=== PATIENT | female | born 1960 | race Two or more races ===

== ENCOUNTER 2024-05-16 18:22 | Emergency (ER) | payer MEDICAID, SELFPAY ==
[2024-05-16 19:15] VITALS: BP 190/112; BP 197/93; PULSE 83; RESP 18; TEMP 36.8; O2SAT 97
--- NOTE | 2024-05-16 19:35 | XR_ITS ---
Examination: PA chest single view Technique: Upright PA chest single view Exam date and time: May 16, 2024 1952 hrs. Comparison August 31, 1999 424 Indications: Onset chest pressure today. Findings: Mild prominence left ventricle No pneumonia or pulmonary edema Stable granuloma left upper lobe compared with December 27, 2006 Old right-sided rib fractures Impression: No active disease
--- NOTE | 2024-05-16 19:36 | EDRME_ITS ---
Rapid Medical Screening Exam [facility] Arrival date/time: 05/16/24 18:22 63F with history of TIA, HTN (has been taking meds), and anxiety presents to ED with 1 day of elevated BP, N/V, and some chest and posterior head pressure. Chief Complaint: Recheck/Abnormal Lab/Rx Vital signs: Vital Signs Temperature 98.3 F 05/16/24 19:15 Pulse Rate 83 05/16/24 19:15 Respiratory Rate 18 05/16/24 19:15 Blood Pressure 197/93 H 05/16/24 19:15 Pulse Oximetry (%) 97 05/16/24 19:15 Oxygen Delivery Method Room Air 05/16/24 19:15
--- NOTE | 2024-05-16 19:36 | XR_ITS ---
Examination: CT brain head without contrast. 2-D sagittal coronal reconstructions Date and time of exam:May 16, 2024 1939 hrs. Indications: Headache with elevated blood pressure today CTDI: vol (mGy):55.3 DLP: (mGycm):1075 Technique: Multiple CT axial sections of the brain have been obtained, 5 mm slice thickness. Contrast has not been administered. 2-D sagittal, coronal reconstructions have been obtained Low dose protocols were performed. One or more of the following dose reduction techniques were used; automated exposure control, adjustment of the mA and/or KV according to patient size, use of iterative reconstruction technique. Findings: No significant ventricular enlargement. Intra-axial or extra-axial hemorrhage density is not seen. No mass effect or midline shift Basal cisterns are not remarkable. Fourth ventricle is midline. Cranial vault intact. Impression: Negative for acute hemorrhage, mass effect or midline shift
[2024-05-16 19:56] LABS: Basophils # (Auto) 0.1 Thou/mm3 (0.0-0.2); Basophils % (Auto) 1 % (0-2.5); Eosinophils # (Auto) 0.3 Thou/mm3 (0.0-0.5); Eosinophils % (Auto) 3 % (0-10); Hematocrit 43.2 % (36.0-46.0); Hemoglobin 14.1 g/dL (12.0-16.0); Immature Granulocytes % (Auto) 1 % (0-0); Immature Granulocytes Auto 0.06 Thou/mm3 (0.00-0.00); Lymphocytes # (Auto) 3.3 Thou/mm3 (1.0-4.8); Lymphocytes % (Auto) 31 % (10-50); Mean Corpuscular HGB Conc 32.6 g/dl (31.0-37.0); Mean Corpuscular Hemoglobin 29.3 pg (25.0-35.0); Mean Corpuscular Volume 90 fL (80-100); Monocytes # (Auto) 0.8 Thou/mm3 (0.0-0.8); Monocytes % (Auto) 8 % (0-12); Neutrophils % (Auto) 57 % (37-80); Nucleated Red Blood Cell % 0 /100 WBC (0); Platelet Count 259 Thou/mm3 (140-440); RDW Standard Deviation 38.6 fL (36.4-46.3); Red Blood Count 4.81 Miln/mm3 (4.00-5.20); White Blood Count 10.5 Thou/mm3 (3.6-11.0)
[2024-05-16 20:14] LABS: Alanine Aminotransferase 24 U/L (10-49); Albumin, Serum 4.7 gm/dL (3.4-4.8); Albumin/Globulin Ratio 1.6 (1.2-2.2); Alkaline Phosphatase 121 U/L (46-116); Anion Gap 3 (7-16); Aspartate Amino Transferase 24 U/L (0-34); BUN/Creatinine Ratio 19 Ratio (12-20); Bilirubin,Total 0.5 mg/dL (0.3-1.2); Blood Urea Nitrogen 15 mg/dL (9-23); Calcium 9.5 mg/dL (8.3-10.6); Calcium (Corrected) 9.5 mg/dL (8.5-10.1); Chloride 106 mMol/L (98-107); Creatinine (Component) 0.8 mg/dL (0.6-1.3); Glucose 122 mg/dL (74-106); Osmolality,Calculated 273 (275-295); Potassium 4.4 mMol/L (3.4-5.1); Sodium 136 mMol/L (136-145); Total Protein 7.7 gm/dL (5.7-8.2); Troponin I < 0.020 ng/mL (0.0-0.045); eGFR > 60 See Note
[2024-05-16 22:49] VITALS: BP 131/101; PULSE 77; RESP 18; TEMP 36.7; O2SAT 99; BMI 30.8
[2024-05-17 01:00] VITALS: BP 224/118; PULSE 72; RESP 18; O2SAT 98
--- NOTE | 2024-05-17 01:07 | EDNOTE_ITS ---
ED Recheck Abnl Lab Rx-RME/HPI General Chief Complaint: Recheck/Abnormal Lab/Rx Stated Complaint: HIGH BP, NAUSEA Arrival date/time: 05/16/24 18:22 Limitations: no limitations RME / HPI RME / HPI narrative: 05/16/24 18:22 63F with history of TIA, HTN (has been taking meds), and anxiety presents to ED with 1 day of elevated BP, N/V, and some chest and posterior head pressure. ---- Dr. Galvez's Main ED Evaluation: 63yo female with pmhx HTN, anxiety presents to the ED for a chief complaint of elevated blood pressure. Patient states her blood pressure went up after she began to experience anxiety, reporting she felt dizzy and had pressure to the back of her head. She states she was concerned, so she came in for evaluation. She denies any chest pain, shortness of breath, nausea, vomiting or any other associated symptoms. No known allergies. Related Data Home Medications ?Medication ?Instructions ?Recorded ?Confirmed losartan 100 mg tablet 100 mg PO QDAY 03/03/23 03/03/23 Previous Rx's ?Medication ?Instructions ?Recorded latanoprost 0.005 % eye drops 1 drp ophthalmic (eye) QPM #2.5 mL 06/21/23 acetazolamide 250 mg tablet 250 mg PO QID #20 tabs 06/23/23 Allergies Allergy/AdvReac Type Severity Reaction Status Date / Time No Known Allergies Allergy Verified 07/22/23 14:04 Review of Systems Review of Systems Systems Reviewed: All systems reviewed, normal except as documented Past Medical History Past Medical History NEUROLOGIC: Negative Neurological Disorders CARDIAC: Positive Hypertension; Negative Cardiac Disorders or Congestive Heart Failure RESPIRATORY: Negative Chronic Obstructive Pulmonary Disease (COPD) or Asthma GASTROINTESTINAL: Positive Gastrointestinal Disorders and Diverticulitis; Negative Hepatitis GENITOURINARY: Positive Genitourinary Disorders; Negative Renal Disease REPRODUCTIVE: Negative Endometriosis, Pelvic Inflammatory Disease, Previous Pregnancies or Uterine Prolapse MUSCULOSKELETAL: Negative Musculoskeletal Disorders ENDOCRINE: Negative Endocrine Disorders, Diabetes Mellitus Type 1 or Diabetes Mellitus Type 2 HEMATOLOGIC: Negative Blood Disorders or Sickle Cell Disease PSYCHO/SOCIAL: Positive Depression and Anxiety OTHER HISTORY: Negative Hospitalization, Autoimmune Disease, Down Syndrome, Developmental Delay, Shingles, Falls, Blood Transfusions, Anesthesia Reactions, Organ Transplant, Chemotherapy, Radiation Therapy, Hyperbaric Therapy, MRSA, VRSA, Vancomycin-Resistant Enterococci, Human Immunodeficiency Virus (HIV), Chicken Pox, Measles, Mumps, Rubella ([place] Islander Measles), Pertussis, Clostridium Difficile or Cancer Family History FAMILY HISTORY: Positive Family Psychiatric Problems, Family Gastrointestinal Problems, Family Cancer and Family Surgery; Negative Family Respiratory Disorders, Family Cardiac Disorders or Family Anesthesia Reaction Surgical History SURGICAL: Positive Nose Surgery and Section; Negative Cardiac Surgery, Endocrine Surgery, Abdominal Surgery, Joint Replacement, Neurologic Surgery, Brain Shunt, Mastectomy, Lumpectomy, Hysterectomy, Tubal Ligation or Organ Transplant Social History SMOKING STATUS: Never smoker ED Exam General Limitations: Present no limitations General appearance: Present alert and in no apparent distress Head Head exam: Present atraumatic Eye Eye exam: Present normal appearance, PERRL and EOMI ENT ENT exam: Present normal exam, normal oropharynx and mucous membranes moist Neck Neck exam: Present normal inspection, full ROM and trachea midline Chest Chest inspection: Present normal inspection and symmetric chest wall rise Respiratory Respiratory exam: Present normal lung sounds bilaterally Cardiovascular Cardiovascular exam: Present regular rate, normal rhythm and normal heart sounds Abdominal Exam Abdominal exam: Present soft and normal bowel sounds Extremities Exam Extremities exam: Present normal inspection and full ROM; Absent pedal edema Back Exam Back exam: Present normal inspection and full ROM Neurological Exam Neurological exam: Present alert, oriented X3 and CN II-XII intact Psychiatric Psychiatric exam: Present normal affect and normal mood Skin Skin exam: Present warm, dry, intact and normal color Course Course Course Narrative: CXR is ordered for determining the etiology of elevated BP. Quality Measures none Orders Category Date Time Status EKG (ED ONLY) *Do not use* NOW Care 05/16/24 18:[address] head/brain wo con Stat Exams 05/16/24 19:36 Completed EKG (ED Only) Stat Exams 05/16/24 18:59 Ordered XR chest 1V portable Stat Exams 05/16/24 19:35 Completed CBC Stat Lab 05/16/24 19:42 Completed Comprehensive Metabolic Panel Stat Lab 05/16/24 19:42 Completed Troponin I Stat Lab 05/16/24 19:42 Completed LORazepam [Ativan] Med 05/17/24 01:02 Discontinued 1 mg PO X1 ONE Vital Signs Vital signs: Vital Signs Temperature 98.3 F 05/16/24 19:15 Pulse Rate 83 05/16/24 19:15 Respiratory Rate 18 05/16/24 19:15 Blood Pressure 197/93 H 05/16/24 19:15 Pulse Oximetry (%) 97 05/16/24 19:15 Oxygen Delivery Method Room Air 05/16/24 19:15 Pulse ox is 97% on room air, which is normal according to my interpretation. Recheck / Abnormal Lab / Rx Patient data External records reviewed:: [facility] previous records (Per chart review, patient was seen here on 08/31/23 for chest pain.) Clinical information provided by:: patient Social determinants that could affect healthcare access:: none Patient has the following chronic illnesses:: HTN How is presenting disease/condition affected by chronic disease/condition?: exacerbated by Evaluation data The following diagnostics were reviewed and interpreted by me:: lab results, radiology exam(s) and EKG tracing(s) Lab and/or radiology exams considered but not ordered:: none Interpretation Summary: CXR shows poor inspiratory effort, no cardiomegaly, left lobe atelectasis, no CHF, according to my interpretation. EKG done at 1923, sinus rhythm, rate of 75, nonspecific ST changes in lead III, QTc: 432, no STEMI, similar to previous EKG done on 07/24/23 Medications / Prescriptions Medications or Prescriptions considered but not ordered:: none Medication administrations:: Medication Administration History Discontinued Medications Lorazepam (Lorazepam 0.5 Mg Tablet) 1 mg PO X1 ONE Stop: 05/17/24 01:03 Last Admin: 05/17/24 01:08 Dose: 1 mg Documented By: BERRY see above Consultations Consultation(s) initiated? (list below): No Diagnosis Recheck Differential Diagnosis: other (hypertensive urgency, hypertensive emergency, anxiety, dehydration) Most likely diagnosis given after review of the tests above:: see below Admission Indicated Admission indicated?: not indicated Admission Request Was there a request for admission?: No Disposition Plan Disposition Plan: Discharge Discharge Attestation Discharge Attestation: The patient and all family members were given an opportunity to ask questions and understood the discharge instructions. Discharge instructions specifically effects, indications for sooner follow up or return to the emergency department, and the expected course of current diagnosis. Patient condition: Stable Discharge Plan Plan Patient Disposition: HOME (Self Care) Patient condition on transfer: Stable Prescriptions/Referrals Prescriptions/Med Rec: No Action losartan 100 mg Tablet 100 mg PO QDAY latanoprost 0.005 % drops 1 drp ophthalmic (eye) QPM Qty: 2.5 0RF acetazolamide 250 mg tablet 250 mg PO QID Qty: 20 0RF Rx Instructions: take one tablet by mouth 4 times daily Referrals: No Primary/Family,Physician [Primary Care Provider] - In 1 week Problem List Clinical Impression: Hypertension, Anxiety Patient/Caregiver Discharge Instructions Education Materials: ED Anxiety Reaction, ED Hypertension, Established Additional Instructions: Return to the emergency department for any worsening symptoms, neck concerns. Take all your medications as prescribed Print Language: Swedish Stand Alone Forms: Deb Award Info., Patient Portal Info Letter
[2024-05-17] MEDS: LORazepam 0.5 MG TABLET 1 MG PO (01:08)
[2024-05-17 02:07] VITALS: BP 182/85; PULSE 75; RESP 18; TEMP 36.6; O2SAT 98
[2024-05-17 02:24] VITALS: BP 152/75
== END 2024-05-17 02:32 | disposition home or self-care (01) ==
PROVIDERS: Physician Assistant; Emergency Provider Emergency Medicine
DX: F41.9 Anxiety disorder, unspecified (principal); I10 Essential (primary) hypertension; R51.9 Headache, unspecified; R07.89 Other chest pain; I49.3 Ventricular premature depolarization
CPT/HCPCS: 36415; 70450; 71045; 80053; 84484; 85025; 93005; 99284; A9270

== ENCOUNTER 2024-06-30 23:31 | Emergency (ER) | payer MEDICAID, SELFPAY ==
[2024-06-30 23:32] VITALS: BMI 38.7
--- NOTE | 2024-06-30 23:54 | PD.EDRME ---
Rapid Medical Screening Exam RME Arrival date/time: 06/30/24 23:31 63 year old female present to Ed for anxiety/chest pain. + stressor I have greeted and performed a focused initial assessment of this patient. A comprehensive ED assessment and evaluation of the patient, analysis of all test results, and completion of the medical decision making process will be conducted by additional ED providers. Chief Complaint: Anxiety
[2024-06-30 23:55] VITALS: BP 162/92; PULSE 77; RESP 20; TEMP 36.6; O2SAT 95
[2024-06-30] MEDS: LORazepam 0.5 MG TABLET PO (23:58)
[2024-07-01 00:51] LABS: Basophils # (Auto) 0.1 Thou/mm3 (0.0-0.2); Basophils % (Auto) 1 % (0-2.5); Eosinophils # (Auto) 0.3 Thou/mm3 (0.0-0.5); Eosinophils % (Auto) 3 % (0-10); Hematocrit 41.9 % (36.0-46.0); Hemoglobin 13.9 g/dL (12.0-16.0); Immature Granulocytes % (Auto) 0 % (0-0); Immature Granulocytes Auto 0.05 Thou/mm3 (0.00-0.00); Lymphocytes # (Auto) 2.6 Thou/mm3 (1.0-4.8); Lymphocytes % (Auto) 23 % (10-50); Mean Corpuscular HGB Conc 33.2 g/dl (31.0-37.0); Mean Corpuscular Hemoglobin 29.5 pg (25.0-35.0); Mean Corpuscular Volume 89 fL (80-100); Monocytes # (Auto) 0.8 Thou/mm3 (0.0-0.8); Monocytes % (Auto) 7 % (0-12); Neutrophils # (Auto) 7.5 Thou/mm3 (1.8-7.7); Neutrophils % (Auto) 66 % (37-80); Nucleated Red Blood Cell % 0 /100 WBC (0); Platelet Count 272 Thou/mm3 (140-440); RDW Standard Deviation 38.5 fL (36.4-46.3); Red Blood Count 4.71 Miln/mm3 (4.00-5.20); White Blood Count 11.4 Thou/mm3 (3.6-11.0)
[2024-07-01 01:09] LABS: Alanine Aminotransferase 21 U/L (10-49); Albumin, Serum 4.5 gm/dL (3.4-4.8); Albumin/Globulin Ratio 1.7 (1.2-2.2); Alkaline Phosphatase 112 U/L (46-116); Anion Gap 8 (7-16); Aspartate Amino Transferase 27 U/L (0-34); BUN/Creatinine Ratio 19 Ratio (12-20); Bilirubin,Total 0.5 mg/dL (0.3-1.2); Blood Urea Nitrogen 15 mg/dL (9-23); Calcium 10.1 mg/dL (8.3-10.6); Calcium (Corrected) 10.1 mg/dL (8.5-10.1); Carbon Dioxide 27.1 mMol/L (20.0-31.0); Chloride 105 mMol/L (98-107); Creatinine (Component) 0.8 mg/dL (0.6-1.3); Estimated Creatinine Clearance 78.9 mL/min (>60); Globulin 2.7 gm/dL (2.3-3.5); Glucose 146 mg/dL (74-106); Lipase 34 U/L (12-53); Osmolality,Calculated 283 (275-295); Sodium 140 mMol/L (136-145); Total Protein 7.2 gm/dL (5.7-8.2); Troponin I < 0.020 ng/mL (0.0-0.045); eGFR > 60 See Note
[2024-07-01 04:11] VITALS: BP 178/84; PULSE 74; RESP 15; TEMP 36.8; O2SAT 97
--- NOTE | 2024-07-01 04:14 | PD.EDANX ---
ED Anxiety RME/HPI General Chief Complaint: Anxiety Stated Complaint: CHEST PAIN/ ANXIETY ATTACK Arrival date/time: 06/30/24 23:31 RME / HPI RME / HPI narrative: 06/30/24 23:31 63 year old female present to Ed for anxiety/chest pain. + stressor I have greeted and performed a focused initial assessment of this patient. A comprehensive ED assessment and evaluation of the patient, analysis of all test results, and completion of the medical decision making process will be conducted by additional ED providers. ------ Dr. Miller?s Main ED Evaluation: Related Data Home Medications ?Medication ?Instructions ?Recorded ?Confirmed losartan 100 mg tablet 100 mg PO QDAY 03/03/23 03/03/23 Previous Rx's ?Medication ?Instructions ?Recorded latanoprost 0.005 % eye drops 1 drp ophthalmic (eye) QPM #2.5 mL 06/21/23 acetazolamide 250 mg tablet 250 mg PO QID #20 tabs 06/23/23 Allergies Allergy/AdvReac Type Severity Reaction Status Date / Time No Known Allergies Allergy Verified 07/22/23 14:04 Review of Systems Review of Systems Systems Reviewed: All systems reviewed, normal except as documented Past Medical History Past Medical History NEUROLOGIC: Negative Neurological Disorders CARDIAC: Positive Hypertension; Negative Cardiac Disorders or Congestive Heart Failure RESPIRATORY: Negative Chronic Obstructive Pulmonary Disease (COPD) or Asthma GASTROINTESTINAL: Positive Gastrointestinal Disorders and Diverticulitis; Negative Hepatitis GENITOURINARY: Positive Genitourinary Disorders; Negative Renal Disease REPRODUCTIVE: Negative Endometriosis, Pelvic Inflammatory Disease, Previous Pregnancies or Uterine Prolapse MUSCULOSKELETAL: Negative Musculoskeletal Disorders ENDOCRINE: Negative Endocrine Disorders, Diabetes Mellitus Type 1 or Diabetes Mellitus Type 2 HEMATOLOGIC: Negative Blood Disorders or Sickle Cell Disease PSYCHO/SOCIAL: Positive Depression and Anxiety OTHER HISTORY: Negative Hospitalization, Autoimmune Disease, Down Syndrome, Developmental Delay, Shingles, Falls, Blood Transfusions, Anesthesia Reactions, Organ Transplant, Chemotherapy, Radiation Therapy, Hyperbaric Therapy, MRSA, VRSA, Vancomycin-Resistant Enterococci, Human Immunodeficiency Virus (HIV), Chicken Pox, Measles, Mumps, Rubella (Amharic Measles), Pertussis, Clostridium Difficile or Cancer Family History FAMILY HISTORY: Positive Family Psychiatric Problems, Family Gastrointestinal Problems, Family Cancer and Family Surgery; Negative Family Respiratory Disorders, Family Cardiac Disorders or Family Anesthesia Reaction Surgical History SURGICAL: Positive Nose Surgery and Section; Negative Cardiac Surgery, Endocrine Surgery, Abdominal Surgery, Joint Replacement, Neurologic Surgery, Brain Shunt, Mastectomy, Lumpectomy, Hysterectomy, Tubal Ligation or Organ Transplant Social History SMOKING STATUS: Never smoker ED Exam Narrative Physical exam: GENERAL APPEARANCE: alert and oriented x 4, well-developed, well-nourished, no acute distress VITALS: All vitals were reviewed and the pulse ox is 97% on room air, which is normal according to my interpretation. HEENT: Normocephalic, atraumatic; pupils equal, round, reactive to light; EOMI; mucous membranes pink, moist; oropharynx clear NECK: Supple LUNGS: CTABL; no wheezes, no rales, no rhonchi HEART: Regular rate, regular rhythm; normal S1, S2; no murmurs ABDOMEN: non distended; normal BS; soft, no tenderness, no guarding, no rebound; no masses, no organomegaly, no hernia BACK: no CVA tenderness EXTREMITIES: atraumatic; no edema NEUROLOGIC: awake; alert and oriented x4; cranial nerves II-XII grossly intact; no focal sensory or motor deficits PSYCHIATRIC: appropriate mood and affect SKIN: warm, dry, normal color; no rashes Course Quality Measures none Orders Category Date Time Status EKG (ED ONLY) *Do not use* NOW Care 06/30/24 23:54 Completed EKG (ED Only) Stat Exams 06/30/24 23:54 Ordered CBC Stat Lab 06/30/24 23:54 Completed CMP [Comprehensive Metabolic Panel] Stat Lab 06/30/24 23:54 Completed Lipase Stat Lab 06/30/24 23:54 Completed Troponin I Stat Lab 06/30/24 23:54 Completed LORazepam [Ativan] Med 06/30/24 23:54 Discontinued 0.5 mg PO X1 ONE Vital Signs Vital signs: Vital Signs Temperature 98 F 06/30/24 23:55 Pulse Rate 77 06/30/24 23:55 Respiratory Rate 20 06/30/24 23:55 Blood Pressure 162/92 H 06/30/24 23:55 Pulse Oximetry (%) 95 06/30/24 23:55 Oxygen Delivery Method Room Air 06/30/24 23:55 Anxiety MDM Narrative MDM Narrative: Scribe Attestation: 07/01/24 - Shannon Taveras am scribing for and in the presence of Dr. Miller. Patient data External records reviewed:: [facility] previous records (Per chart review, patient was seen here on 05/17/24 for anxiety.) Clinical information provided by:: patient Social determinants that could affect healthcare access:: mental health Patient has the following chronic illnesses:: HTN, anxiety How is presenting disease/condition affected by chronic disease/condition?: caused by Evaluation data The following diagnostics were reviewed and interpreted by me:: lab results and EKG tracing(s) Lab and/or radiology exams considered but not ordered:: none Interpretation Summary: WBC count is slightly elevated at 11.4, Glucose is 146, troponin is normal, according to my interpretation. EKG done at 0006, NSR, rate of 73, normal axis, occasional PVCs, no acute ischemia, according to my interpretation. Medications / Prescriptions Medications or Prescriptions considered but not ordered:: none Medication administrations:: Medication Administration History Discontinued Medications Lorazepam (Lorazepam 0.5 Mg Tablet) 0.5 mg PO X1 ONE Stop: 06/30/24 23:55 Last Admin: 06/30/24 23:58 Dose: 0.5 mg Documented By: CB see above Discharge Plan Prescriptions/Referrals Prescriptions/Med Rec: No Action losartan 100 mg Tablet 100 mg PO QDAY latanoprost 0.005 % drops 1 drp ophthalmic (eye) QPM Qty: 2.5 0RF acetazolamide 250 mg tablet 250 mg PO QID Qty: 20 0RF Rx Instructions: take one tablet by mouth 4 times daily Referrals: Carlos Thomas MD [Primary Care Provider] - In 1 week Patient/Caregiver Discharge Instructions Print Language: Tamazight
--- NOTE | 2024-07-01 04:30 | PC.NURSE ---
Pt is alert/oriented x3. Pt is out of bed to use restroom. Respirations are even and unlabored. No s/s of acute distress noted.
[2024-07-01 06:01] VITALS: BP 191/81; PULSE 70; RESP 16; TEMP 37; O2SAT 100
[2024-07-01 06:40] VITALS: BP 174/98; PULSE 70; RESP 17; TEMP 37; O2SAT 98
[2024-07-01 08:14] LABS: Troponin I < 0.020 ng/mL (0.0-0.045)
[2024-07-01 08:30] VITALS: BP 146/90; PULSE 72; RESP 18; TEMP 36.8; O2SAT 98
--- NOTE | 2024-07-01 08:35 | EDNOTE_ITS ---
ED Chest Pain RME/HPI General Chief Complaint: Anxiety Stated Complaint: CHEST PAIN/ ANXIETY ATTACK Time Seen by Provider: 07/01/24 06:34 Arrival date/time: 06/30/24 23:31 RME / HPI RME / HPI narrative: 63-year-old female with a history of hypertension, anxiety presents to the emergency department with chest pain and anxiety. Chest pain is poorly qualified as both being severe, pressure, or wrapping around her chest like sensation. This results in her whole body feeling warm and anxious Related Data Home Medications ?Medication ?Instructions ?Recorded ?Confirmed losartan 100 mg tablet 100 mg PO QDAY 03/03/23 03/03/23 Previous Rx's ?Medication ?Instructions ?Recorded latanoprost 0.005 % eye drops 1 drp ophthalmic (eye) QPM #2.5 mL 06/21/23 acetazolamide 250 mg tablet 250 mg PO QID #20 tabs 06/23/23 Allergies Allergy/AdvReac Type Severity Reaction Status Date / Time No Known Allergies Allergy Verified 07/22/23 14:04 Review of Systems Review of Systems Systems Reviewed: All systems reviewed, normal except as documented ED Exam Narrative Physical exam: GENERAL APPEARANCE: AxOx4, generally well-appearing, no acute distress. HEENT: NC, AT. MMM. EOMI, clear conjunctiva, oropharynx clear. NECK: Supple without lymphadenopathy. No stiffness or restricted ROM. HEART: Normal rate and regular rhythm, normal S1/S1, no m/r/g LUNGS: CTAB, moving air well. No crackles or wheezes are heard. ABDOMEN: Soft, nontender, nondistended with good bowel sounds heard. BACK: No midline C/T/L spine pain or deformity, No CVAT, no obvious deformity. EXTREMITIES: Without cyanosis, clubbing or edema. MUSCULOSKELETAL: FROM of all major joints, no chest tenderness NEUROLOGICAL: Grossly nonfocal. Alert and oriented, moving all 4 extremities. CN not formally tested but appear grossly intact. Observed to ambulate with normal gait. Skin: Warm and dry without any rash. Course Quality Measures none Orders Category Date Time Status EKG (ED ONLY) *Do not use* NOW Care 06/30/24 23:54 Completed EKG (ED Only) Stat Exams 06/30/24 23:54 Ordered CBC Stat Lab 06/30/24 23:54 Completed CMP [Comprehensive Metabolic Panel] Stat Lab 06/30/24 23:54 Completed Lipase Stat Lab 06/30/24 23:54 Completed Troponin I Stat Lab 06/30/24 23:54 Completed Troponin I Stat Lab 07/01/24 06:47 Completed Acetaminophen Tab [Tylenol Tab] Med 07/01/24 08:40 Discontinued 650 mg PO X1 ONE LORazepam [Ativan] Med 06/30/24 23:54 Discontinued 0.5 mg PO X1 ONE Vital Signs Vital signs: Vital Signs Temperature 98 F 06/30/24 23:55 Pulse Rate 77 06/30/24 23:55 Respiratory Rate 20 06/30/24 23:55 Blood Pressure 162/92 H 06/30/24 23:55 Pulse Oximetry (%) 95 06/30/24 23:55 Oxygen Delivery Method Room Air 06/30/24 23:55 Procedures -ED EKG Interpretation #1: Date of EK07/01/24 Time of EK:06 Rate: 73 Interpretation: Interpreted by me EKG Impression: Normal sinus rhythm, No acute ST-T changes, Normal intervals and Normal axis Chest Pain MDM Narrative MDM Narrative:: Ms. Thomas is a clinically well, mildly anxious, who presents with chest pain of low suspicion for cardiac ischemia. She has a history of hypertension EKG and troponin x 2 shows no signs of acute ischemia, heart score of 2 she is appropriate for outpatient follow-up. She was given anxiolytics via the RME process and is otherwise asymptomatic. Chest x-ray my interpretation shows no acute cardiopulmonary findings, no cardiomegaly, no bony abnormalities. I reviewed the radiology interpretation and agree. As patient is otherwise well-appearing, has stable vital signs, negative cardiac workup, she is appropriate for outpatient follow-up Patient data External records reviewed:: [facility] previous records Clinical information provided by:: patient and family Social determinants that could affect healthcare access:: none Patient has the following chronic illnesses:: Hypertension anxiety How is presenting disease/condition affected by chronic disease/condition?: uneffected by Evaluation data The following diagnostics were reviewed and interpreted by me:: lab results, radiology exam(s) and EKG tracing(s) Lab and/or radiology exams considered but not ordered:: None Interpretation Summary: As per narrative Medications / Prescriptions Medications or Prescriptions considered but not ordered:: None Medication administrations:: Medication Administration History Discontinued Medications Acetaminophen (Acetaminophen 325 Mg Tablet) 650 mg PO X1 ONE Stop: 12/30/24 08:41 Last Admin: 07/01/24 08:43 Dose: 650 mg Documented By: JOSE Lorazepam (Lorazepam 0.5 Mg Tablet) 0.5 mg PO X1 ONE Stop: 06/30/24 23:55 Last Admin: 06/30/24 23:58 Dose: 0.5 mg Documented By: BERRY Above Consultations Consultation(s) initiated? (list below): No Diagnosis Chest Pain Differential Diagnosis: atypical chest pain, st elevation myocardial infarction, costochondritis and chest pain Most likely diagnosis given after review of the tests above:: See below Admission Indicated Admission indicated?: not indicated Admission Request Was there a request for admission?: No Disposition Plan Disposition Plan: Discharge Discharge Attestation Discharge Attestation: The patient and all family members were given an opportunity to ask questions and understood the discharge instructions. Discharge instructions specifically effects, indications for sooner follow up or return to the emergency department, and the expected course of current diagnosis. Patient condition: Stable Discharge Plan Plan Patient Disposition: HOME (Self Care) Prescriptions/Referrals Prescriptions/Med Rec: No Action losartan 100 mg Tablet 100 mg PO QDAY latanoprost 0.005 % drops 1 drp ophthalmic (eye) QPM Qty: 2.5 0RF acetazolamide 250 mg tablet 250 mg PO QID Qty: 20 0RF Rx Instructions: take one tablet by mouth 4 times daily Referrals: Carlos Thomas MD [Primary Care Provider] - In 1 week Problem List Clinical Impression: Chest pain Patient/Caregiver Discharge Instructions Education Materials: ED Chest Pain, Uncertain Cause Additional Instructions: Los resultados de los an?lisis de laboratorio de benson coraz?n se encuentran dentro de los l?mites normales. Hoy no hay signos de problemas card?acos. Visite a benson m?dico de atenci?n primaria en 2 o 3 d?as para que le guillaume un nuevo control. Puede regresar al departamento de emergencias antes si los s?ntomas empeoran o si nota alg?n problema nuevo o preocupante. Print Language: Wolof Stand Alone Forms: Deb Award Info., Patient Portal Info Letter
[2024-07-01] MEDS: ACETAMINOPHEN 325 MG TABLET 650 MG PO (08:43)
== END 2024-07-01 08:54 | disposition home or self-care (01) ==
PROVIDERS: Physician Assistant; Emergency Provider Emergency Medicine; PCP Family Medicine
DX: R07.9 Chest pain, unspecified (principal)
CPT/HCPCS: 36415; 80053; 83690; 84484; 85025; 93005; 99283; A9270

== ENCOUNTER 2024-12-06 11:18 | Emergency (ER) | payer MEDICAID, SELFPAY ==
[2024-12-06 11:44] VITALS: BP 157/107; PULSE 77; RESP 18; TEMP 36.7; O2SAT 97; BMI 32.5
--- NOTE | 2024-12-06 11:46 | XR_ITS ---
Examination: CT abdomen and pelvis without contrast. Coronal 3-D reconstructions. Sagittal 2-D reconstructions. Date and time of exam:December 06, 2024 1210 hours INDICATIONS: Generalized abdominal pain beginning 3 days ago, acute diverticulitis mid descending colon and sigmoid colon on CT study 03/03/2023 COMPARISON: 03/03/2023 CTDI: vol (mGy): 11.6 DLP: (mGycm): 675 Technique: Axial images of the abdomen have been obtained, 3 mm slice thickness Intravenous contrast material has not been administered. Low dose protocols were performed. One or more of the following dose reduction techniques were used; automated exposure control, adjustment of the mA and/or KV according to patient size, use of iterative reconstruction technique. Findings: Fatty infiltration throughout the liver Gallbladder not visualized No pancreatic or adrenal mass Spleen not enlarged No renal or ureteral calculi, no hydronephrosis Aorta normal size Normal appendix Colonic diverticulosis Acute diverticulitis junction distal descending colon and sigmoid colon, no peridiverticular abscess Contracted urinary bladder IMPRESSION: Acute diverticulitis junction distal descending colon and sigmoid colon, no peridiverticular abscess
--- NOTE | 2024-12-06 11:47 | PD.EDRME ---
Rapid Medical Screening Exam RME Arrival date/time: 12/06/24 11:18 64-year-old female with a history of hypertension presents to the emergency room with a chief complaint of 8 out of 10 lower pelvic pain x 3 days. Patient was sent over by her primary care provider. I have greeted and performed a focused initial assessment of this patient. A comprehensive ED assessment and evaluation of the patient, analysis of all test results, and completion of the medical decision making process will be conducted by additional ED providers. Chief Complaint: Abdominal Pain Time Seen by Provider: 12/06/24 11:32 Vital signs: Vital Signs Temperature 98.0 F 12/06/24 11:44 Pulse Rate 77 12/06/24 11:44 Respiratory Rate 18 12/06/24 11:44 Blood Pressure 157/107 H 12/06/24 11:44 Pulse Oximetry (%) 97 12/06/24 11:44 Oxygen Delivery Method Room Air 12/06/24 11:44 Vital signs reviewed by provider: Yes
[2024-12-06 12:17] LABS: Basophils # (Auto) 0.1 Thou/mm3 (0.0-0.2); Basophils % (Auto) 0 % (0-2.5); Eosinophils # (Auto) 0.1 Thou/mm3 (0.0-0.5); Eosinophils % (Auto) 1 % (0-10); Hematocrit 42.3 % (36.0-46.0); Hemoglobin 14.4 g/dL (12.0-16.0); Immature Granulocytes % (Auto) 0 % (0-0); Immature Granulocytes Auto 0.04 Thou/mm3 (0.00-0.00); Lymphocytes # (Auto) 3.2 Thou/mm3 (1.0-4.8); Lymphocytes % (Auto) 25 % (10-50); Mean Corpuscular Hemoglobin 29.8 pg (25.0-35.0); Mean Corpuscular Volume 87 fL (80-100); Monocytes # (Auto) 0.8 Thou/mm3 (0.0-0.8); Monocytes % (Auto) 6 % (0-12); Neutrophils # (Auto) 8.6 Thou/mm3 (1.8-7.7); Neutrophils % (Auto) 67 % (37-80); Nucleated Red Blood Cell % 0 /100 WBC (0); Platelet Count 249 Thou/mm3 (140-440); RDW Standard Deviation 38.9 fL (36.4-46.3); Red Blood Count 4.84 Miln/mm3 (4.00-5.20); White Blood Count 12.8 Thou/mm3 (3.6-11.0)
[2024-12-06 12:35] LABS: Collection Type, Urine Clean Catch
[2024-12-06 12:36] LABS: Alanine Aminotransferase 19 U/L (10-49); Albumin, Serum 4.6 gm/dL (3.4-4.8); Albumin/Globulin Ratio 1.7 (1.2-2.2); Alkaline Phosphatase 117 U/L (46-116); Anion Gap 9 (7-16); Aspartate Amino Transferase 22 U/L (0-34); BUN/Creatinine Ratio 15 Ratio (12-20); Blood Urea Nitrogen 12 mg/dL (9-23); Carbon Dioxide 28.7 mMol/L (20.0-31.0); Chloride 105 mMol/L (98-107); Creatinine (Component) 0.8 mg/dL (0.6-1.3); Estimated Creatinine Clearance 82.1 mL/min (>60); Globulin 2.7 gm/dL (2.3-3.5); Glucose 113 mg/dL (74-106); Lipase 30 U/L (12-53); Osmolality,Calculated 285 (275-295); Potassium 4.1 mMol/L (3.4-5.1); Sodium 143 mMol/L (136-145); Total Protein 7.3 gm/dL (5.7-8.2); eGFR > 60 See Note
[2024-12-06 12:41] LABS: Bilirubin,Urine Negative (Negative); Blood,Urine Trace (Negative); Clarity,Urine Clear (Clear/Hazy); Color,Urine Lt-Yellow (Lt Yel-Yel); Glucose, Urine Negative (Negative); Ketones,Urine Negative (Negative); Leukocyte Esterase,Urine Negative (Negative); Nitrite,Urine Negative (Negative); PH,Urine 5.5 (5.0-7.0); Protein,Urine Negative (Neg - Trace); RBC,Urine 3 /hpf (0-3); Specific Gravity,Urine 1.024 (1.001-1.035); Squamous Epithelial Cell,Urine 3 /hpf (0-5); Urobilinogen,Urine Negative mg/dL (0.0-1.0); WBC,Urine 1 /hpf (0-5)
--- NOTE | 2024-12-06 14:18 | EDNOTE_ITS ---
ED Abdominal Pain RME/HPI General Chief Complaint: Abdominal Pain Stated complaint: GENERALIZED ABD PAIN X2 DAYS Time seen by provider: 12/06/24 11:32 Arrival date/time: 12/06/24 11:18 RME / HPI RME / HPI narrative: 12/06/24 11:18 A 64-year-old female patient with past medical history of hypertension presented to the ED due to acute abdominal pain that started 2 days before presentation. She reported that the pain located at the lower abdominal area associated with nausea however no anorexia, no vomiting, no diarrhea or constipation. Patient denied any urine tract symptoms. Patient also denied any diarrhea, bleeding per rectum, or hematemesis. on questioning patient reported that she has similar episode 1 year ago in which she was admitted to the hospital for 4 days. However upon review of her chart patient was found to be admitted only for acute headache and closed-angle glaucoma. Related Data Home Medications ?Medication ?Instructions ?Recorded ?Confirmed losartan 100 mg tablet 100 mg PO QDAY 03/03/2307/25 Previous Rx's ?Medication ?Instructions ?Recorded latanoprost 0.005 % eye drops 1 drp ophthalmic (eye) Q PM #2.5 mL 06/21/23 acetazolamide 250 mg tablet 250 mg PO QID #20 tabs acetaminophen 500 mg oral powder 500 mg PO QID PRN dora n #12 ea 12/06/24 packet (Tylenol Extra Strength) ciprofloxacin HCl 500 mg tablet 500 mg PO BID 7 days # 14 tabs 12/06/24 metronidazole 500 mg tablet 500 mg PO Q8H 7 days #21 t abs 12/06/24 omeprazole 40 mg capsule,delayed 40 mg PO QDAY #14 cap s 12/06/24 release ondansetron 4 mg disintegrating 4 mg PO Q8H PRN nausea and 12/06/24 tablet vomiting 5 days #14 tabs Allergies Allergy/AdvReac Type Severity Reaction Status Date / Time No Known Allergies Allergy Verified 12/06/24 11:22 ED Exam Narrative Physical exam: GEN: AOx3, able to speak full sentences HEENT: NC/AC, oral mucosa moist, neck supple CVS: RRR, S1-S2 present, no murmurs appreciated RESP: CTAB GI: soft,non distended, mild tenderness on the right and left lower quadrant and hypogastric area. No rebound tenderness or rigidity. 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 Course Quality Measures none Orders Category Date Time Status CT abdomen pelvis wo con Stat Exams 12/06/24 11:46 Completed CBC Stat Lab 12/06/24 11:52 Completed CMP [Comprehensive Metabolic Panel] Stat Lab 12/06/24 11:52 Completed Lipase Stat Lab 12/06/24 11:52 Completed UA [Urinalysis] Stat Lab 12/06/24 12:20 Completed Urine Culture Stat Lab 12/06/24 12:20 Received Acetaminophen Tab [Tylenol ES Tab] Med 12/06/24 14:58 Discontinued 1,000 mg PO X1 ONE CIPROFLOXACIN/D5w 400 MG IVPB [Cipro Ivpb] Med 12/06/24 14:13 Discontinued 400 mg in 200 ml IV Q12HR Ciprofloxacin HCl [Ciprofloxacin] Med 12/06/24 14:29 Discontinued 500 mg PO X1 ONE Morphine Inj Med 12/06/24 14:15 Discontinued 2 mg IVP X1 ONE Sodium Chloride 0.9% 1000 ml [Ns] 1,000 ml Med 12/06/24 14:14 Discontinued IV 999 mls/hr metroNIDAZOLE [Flagyl] Med 12/06/24 14:29 Discontinued 500 mg PO X1 ONE metroNIDAZOLE/NS 500 MG IVPB [Flagyl 500 mg IV] Med 12/06/24 14:14 Discontinued 500 mg in 100 ml IV Q8HR Vital Signs Vital signs: Vital Signs Temperature 98.0 F 12/06/24 11:44 Pulse Rate 77 12/06/24 11:44 Respiratory Rate 18 12/06/24 11:44 Blood Pressure 157/107 H 12/06/24 11:44 Pulse Oximetry (%) 97 12/06/24 11:44 Oxygen Delivery Method Room Air 12/06/24 11:44 Abdominal Pain MDM MDM Narrative MDM Narrative:: Patient vitally stable except mild elevation of her blood pressure to 156/95, CBC showed only mild elevation of WBCs 12.6, CMP was normal, lipase was within normal limits, urinalysis was negative for any WBCs or blood, CT scan of the abdomen showed acute diverticulitis with no abscess. No perforation, no appendicitis, and no kidney stones. At this time patient does not have any signs of symptoms of complicated diverticulitis. Patient reported that she is tolerating oral feeds well however she did not eat today because she came to the hospital. Patient has not had any outpatient antibiotics and she reported that she was referred from the clinic of her primary care provider to the hospital directly and has not used any antibiotics. Patient will be given IV fluids bolus 1 L and Flagyl with ciprofloxacin x 1 and also morphine to control her pain. Reevaluate if the patient is stable will be discharged and follow-up outpatient. Upon reevaluation patient was found to be lying in bed comfortably, still complaining of mild abdominal discomfort especially at the epigastric area however her lower abdominal pain is somehow resolved. Patient did not vomit the medications she still have mild nausea. At this time patient is stable to be discharged to complete course of antibiotics for 7 days at home, follow-up with her PCP on Monday on 09 December 2024. Patient was instructed to return to the ED in case of worsening of her symptoms or persistent nausea or vomiting or any medical emergency. Patient will be discharged on ciprofloxacin, metronidazole, acetaminophen, omeprazole, Zofran. Patient data External records reviewed:: [facility] previous records and PCP records Clinical information provided by:: patient Social determinants that could affect healthcare access:: none Patient has the following chronic illnesses:: Hypertension How is presenting disease/condition affected by chronic disease/condition?: no chronic disease Evaluation data The following diagnostics were reviewed and interpreted by me:: lab results, radiology exam(s), EKG tracing(s) and other (specify) Lab and/or radiology exams considered but not ordered:: None Interpretation Summary: Acute diverticulitis, noncomplicated Medications / Prescriptions Medications or Prescriptions considered but not ordered:: None Medication administrations:: Medication Administration History Discontinued Medications Acetaminophen (Acetaminophen 500 Mg Tablet) 1,000 mg PO X1 ONE Stop: 12/06/24 14:59 Last Admin: 12/06/24 15:25 Dose: 1,000 mg Documented By: OA Ciprofloxacin (Ciprofloxacin Hcl 250 Mg Tablet) 500 mg PO X1 ONE Stop: 12/06/24 14:30 Last Admin: 12/06/24 14:42 Dose: 500 mg Documented By: OA Ciprofloxacin/Dextrose (Cipro Ivpb) 400 mg in 200 mls @ 200 mls/hr IV Q12HR INOCENCIA Stop: 12/13/24 14:12 Last Admin: 12/06/24 15:37 Dose: Not Given Documented By: OA Non-Admin Reason: Discontinued Metronidazole (Flagyl 500 Mg Iv) 500 mg in 100 mls @ 200 mls/hr IV Q8HR INOCENCIA Stop: 12/13/24 14:13 Sodium Chloride (Ns) 1,000 mls @ 999 mls/hr IV .Q1H1M ONE Stop: 12/06/24 15:14 Last Admin: 12/06/24 14:31 Dose: 999 mls/hr Documented By: OA Metronidazole (Metronidazole 250 Mg Tablet) 500 mg PO X1 ONE Stop: 12/06/24 14:30 Last Admin: 12/06/24 14:42 Dose: 500 mg Documented By: OA Morphine Sulfate (Morphine Sulf Inj 10 Mg/Ml Vial) 2 mg IVP X1 ONE Stop: 12/06/24 14:16 as above Consultations Consultation(s) initiated? (list below): No Consultation #1 (Physician, Specialty, Details): None Diagnosis Differential diagnosis abdominal pain: diverticulitis Most likely diagnosis given after review of the tests above:: Acute diverticulitis, uncomplicated Admission Indicated Admission indicated?: not indicated Admission Request Was there a request for admission?: No Disposition Plan Disposition Plan: Discharge Discharge Attestation Discharge Attestation: The patient and all family members were given an opportunity to ask questions and understood the discharge instructions. Discharge instructions specifically effects, indications for sooner follow up or return to the emergency department, and the expected course of current diagnosis. Patient condition: Stable Discharge Plan Plan Patient Disposition: HOME (Self Care) Patient condition on transfer: Stable and Benefits outweigh risks Health Concerns: Follow-up with your primary care provider within 1 week of discharge Use medications as prescribed In case of worsening of your symptoms please return to the ED as soon as possible In case of fever not able to tolerate any feeding, persistent nausea or vomiting, worsening of the pain, fever or chills please return to the ED Use ciprofloxacin 500 mg 2 times a day after meal for 7 days Use metronidazole 500 mg 3 times a day after meal for 7 days Use Tylenol 500 mg per oral 3 times a day as needed for the pain Use ondansetron 4 mg p.o. as needed for the nausea and vomiting 3 times a day before meal Use omeprazole 40 mg per oral once a day 30 minutes before breakfast Prescriptions/Referrals Prescriptions/Med Rec: New omeprazole 40 mg capsule,delayed release(DR/EC) 40 mg PO QDAY Qty: 14 0RF ciprofloxacin HCl 500 mg tablet 500 mg PO BID 7 Days Qty: 14 0RF metronidazole 500 mg tablet 500 mg PO Q8H 7 Days Qty: 21 0RF Tylenol Extra Strength 500 mg powder in packet 500 mg PO QID PRN (Reason: pain) Qty: 12 0RF ondansetron 4 mg tablet,disintegrating 4 mg PO Q8H PRN (Reason: nausea and vomiting) 5 Days Qty: 14 0RF No Action losartan 100 mg Tablet 100 mg PO QDAY latanoprost 0.005 % drops 1 drp ophthalmic (eye) QPM Qty: 2.5 0RF acetazolamide 250 mg tablet 250 mg PO QID Qty: 20 0RF Rx Instructions: take one tablet by mouth 4 times daily Referrals: Carlos Thomas MD [Primary Care Provider] - In 1 week Problem List Clinical Impression: Diverticulitis Patient/Caregiver Discharge Instructions Discharge Activity: activity as tolerated Print Language: Korean Stand Alone Forms: Deb Award Info., Patient Portal Info Letter Attestation Attestation I, Vitaliy Shields MD, have reviewed the history, exam, and assessment of the patient. I have evaluated the patient independently and agree with the plan of care documented by [ ]. All diagnostic studies were reviewed and discussed. I confirm the diagnosis as documented by the Resident. I was present during the Medical Decision Making for this patient. The patient's plan of care was created between myself and the Resident and consistent with our discussion of the patient's case.
[2024-12-06] MEDS: SODIUM CHLORIDE 0.9% 1000 ML 1,000 ML 999 ML IV (14:31)
[2024-12-06] MEDS: CIPROFLOXACIN HCL 250 MG TABLET 500 MG PO (14:42)
[2024-12-06] MEDS: metroNIDAZOLE 250 MG TABLET 500 MG PO (14:42)
[2024-12-06] MEDS: ACETAMINOPHEN 500 MG TABLET 1000 MG PO (15:25)
[2024-12-06 15:45] VITALS: BP 124/82; PULSE 78; RESP 16; O2SAT 99
== END 2024-12-06 15:46 | disposition home or self-care (01) ==
PROVIDERS: Nurse Practitioner Family; Emergency Provider Emergency Medicine; PCP Family Medicine
DX: K57.32 Diverticulitis of large intestine without perforation or abscess without bleeding (principal)
CPT/HCPCS: 36415; 74176; 80053; 81001; 83690; 85025; 87086; 99284; J7030; A9270

== ENCOUNTER 2025-02-07 16:49 | Emergency (ER) | payer MEDICAID, SELFPAY ==
[2025-02-07 16:50] VITALS: BP 147/94; PULSE 65; RESP 18; TEMP 36.8; O2SAT 96
[2025-02-07 16:51] VITALS: BMI 42.9
[2025-02-07 17:19] VITALS: PULSE 86; RESP 16; O2SAT 98
--- NOTE | 2025-02-07 17:22 | XR_ITS ---
Examination: CT lumbar spine, without contrast. 2-D sagittal reconstructions. 2-D coronal reconstructions. 3-D reconstructions. Date and time of exam:February 07, 2025, 181 hours INDICATIONS: Onset low back pain today CTDI: vol (mGy):33.7 DLP: (mGycm):1058 Technique: Multiple 1.25 mm axial sections of the lumbar spine without intravenous contrast have been obtained. 2-D sagittal and coronal reconstructions have been obtained. 3-D reconstructions have been obtained. Low dose protocols were performed. One or more of the following dose reduction techniques were used; automated exposure control, adjustment of the mA and/or KV according to patient size, use of iterative reconstruction technique. Findings: Prominent osteopenia. No lumbar fracture. Diffuse mild to moderate lumbar disc narrowing most prominent at L3-L4 No spondylolisthesis L5-S1 3 mm central 5 mm left foraminal disc bulge producing moderate left L5 ganglionic compression L4-L5 severe overall spinal stenosis, axial image 83, 10 mm central lumbar disc bulge, facet arthropathy circumferentially narrowing the thecal sac L3-L4 3 mm calcified central lumbar disc L2-L3 2 mm calcified central lumbar discs L1-L2 no disc protrusion IMPRESSION: L5-S1 3 mm central 5 mm left foraminal disc bulge producing moderate left L5 ganglionic impression L4-L5 severe overall spinal stenosis, axial image 83, including 10 mm central lumbar disc bulge and prominent facet arthropathy with thickening of ligamentum flavum Consider elective MRI lumbar spine without contrast follow-up
--- NOTE | 2025-02-07 17:23 | EKG_ITS ---
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
--- NOTE | 2025-02-07 17:23 | EDNOTE_ITS ---
ED General RME/HPI General Chief complaint: Back Pain/Injury Stated complaint: BACK PAIN Time Seen by Provider: 02/07/25 17:12 Arrival date/time: 02/07/25 16:49 RME / HPI RME / HPI narrative: 64-year-old female patient came in for evaluation regarding low back pain. Onset of symptoms started today as sudden onset low back pain, severity severe, and patient has to lie down on the ground due to pain. Patient denies any bladder incontinence. Denies any bowel incontinence denies any saddle anesthesia. Denies any focal neurologic deficit. Denies any trauma to the back denies any dysuria frequency hematuria or other complaints. Denies any fever also. No medication was taken prior to arrival. Denies any similar episode in the past Related Data Home Medications ?Medication ?Instructions ?Recorded ?Confirmed losartan 100 mg tablet 100 mg PO QDAY 03/03/230 07/25 Previous Rx's ?Medication ?Instructions ?Recorded latanoprost 0.005 % eye drops 1 drp ophthalmic (eye) Q PM #2.5 mL 06/21/23 acetazolamide 250 mg tablet 250 mg PO QID #20 tabs acetaminophen 500 mg oral powder 500 mg PO QID PRN dora n #12 ea 12/06/24 packet (Tylenol Extra Strength) omeprazole 40 mg capsule,delayed 40 mg PO QDAY #14 cap s 12/06/24 release cyclobenzaprine 10 mg tablet 10 mg PO TID PRN muscle s pasm #30 02/07/25 tabs ibuprofen 800 mg tablet 800 mg PO Q8H PRN pain #30 t abs 02/07/25 Allergies Allergy/AdvReac Type Severity Reaction Status Date / Time No Known Allergies Allergy Verified 02/07/25 17:19 Review of Systems Review of Systems Narrative Review of Systems: Review of system reviewed and within normal limits except mentioned in HPI ED Exam Narrative Physical exam: VITAL SIGNS: Reviewed. GENERAL APPEARANCE: Alert and interactive, follows commands, no acute distress, HEAD AND FACE: Non-traumatic. ENT: PERRL, pink conjunctivitis, eyelid no trauma, Mucous membrane moist. NECK: Supple, nontender, no nuchal rigidity. CHEST: No tenderness, no crepitus, no paradoxical movement, no retractions. LUNGS: Clear, well ventilated, symmetric, no rales, no wheezing, no ronchi, no stridor, good breath sounds bilaterally. HEART: Regular rate, regular rhythm, no murmur, no gallops. ABDOMEN: Soft, positive bowel sounds, nondistended, no guarding, nontender, no rebound, no masses, RECTAL: Deferred. GENITAL: Deferred. NEUROLOGICAL: Gross motor function intact sensory function intact, Appropriate for age. MUSCULOSKELETAL: low back nontender, full range of motion. Negative for straight leg raising test bilateral EXTREMITIES: Low back tenderness, full range of motion. No redness noted no masses noted no rashes noted no midline tenderness, negative for straight leg raising test bilateral lower extremity SKIN: Color pink, dry, no rash, no lacerations, no abrasions, no contusions. LYMPHATICS: Deferred. Course Quality Measures none Orders Category Date Time Status EKG (ED ONLY) *Do not use* NOW Care 02/07/25 17:[address] lumbar spine wo con Stat Exams 02/07/25 17:22 Completed EKG (ED Only) Stat Exams 02/07/25 17:23 Draft CBC [CBC] Stat Lab 02/07/25 17:30 Completed CMP [Comprehensive Metabolic Panel] Stat Lab 02/07/25 17:30 Completed Troponin I Stat Lab 02/07/25 17:30 Completed UA, C/S IF [Urinalysis, C/S if Indicated] Stat Lab 02/07/25 17:43 Completed Ketorolac Inj [Toradol Inj] Med 02/07/25 17:22 Discontinued 30 mg IM X1 ONE Vital Signs Vital signs: Vital Signs Temperature 98.2 F 02/07/25 16:50 Pulse Rate 65 02/07/25 16:50 Respiratory Rate 18 02/07/25 16:50 Blood Pressure 147/94 H 02/07/25 16:50 Pulse Oximetry (%) 96 02/07/25 16:50 Oxygen Delivery Method Room Air 02/07/25 16:50 Discharge Plan Plan Patient Disposition: HOME (Self Care) Discharge Disposition comment: Stable Prescriptions/Referrals Prescriptions/Med Rec: New cyclobenzaprine 10 mg tablet 10 mg PO TID PRN (Reason: muscle spasm) Qty: 30 0RF ibuprofen 800 mg tablet 800 mg PO Q8H PRN (Reason: pain) Qty: 30 0RF No Action losartan 100 mg Tablet 100 mg PO QDAY latanoprost 0.005 % drops 1 drp ophthalmic (eye) QPM Qty: 2.5 0RF acetazolamide 250 mg tablet 250 mg PO QID Qty: 20 0RF Rx Instructions: take one tablet by mouth 4 times daily omeprazole 40 mg capsule,delayed release(DR/EC) 40 mg PO QDAY Qty: 14 0RF Tylenol Extra Strength 500 mg powder in packet 500 mg PO QID PRN (Reason: pain) Qty: 12 0RF Referrals: Carlos Thomas MD [Primary Care Provider] - In 1 week Problem List Clinical Impression: Low back pain, Lumbar disc disease Patient/Caregiver Discharge Instructions Discharge Activity: activity as tolerated Education Materials: Back Safety Bed, ED Back Exercises, Lumbar Additional Instructions: Thank you for the opportunity for serving you today. You are stable for discharged . You are advised to: Follow-up with your PCP in 1 to 2 days Return to ED for worsening of symptoms Increase oral fluids Take medication as prescribed Print Language: Italian Stand Alone Forms: [employer] Award Info., Patient Portal Info Letter LIANG/EMIGDIO Supervising Physician LIANG/EMIGDIO Supervising Physician: MD Bárbara [facility] [place] Narrative MDM hospital course: 64-year-old female patient came in for evaluation regarding low back pain. Onset of symptoms started today as sudden onset low back pain, severity severe, and patient has to lie down on the ground due to pain. Patient denies any bladder incontinence. Denies any bowel incontinence denies any saddle anesthesia. Denies any focal neurologic deficit. Denies any trauma to the back denies any dysuria frequency hematuria or other complaints. Denies any fever also. No medication was taken prior to arrival. Denies any similar episode in the past Patient reports her workup all came back unremarkable including urinalysis which is normal. CT scan of the lumbar spine showed L5-S1 3 mm central 5 mm left foraminal disc bulge producing moderate left L5 ganglionic impression L4-L5 severe overall spinal stenosis, axial image 83, including 10 mm central lumbar disc bulge and prominent facet arthropathy with thickening of ligamentum flavum Consider elective MRI lumbar spine without contrast follow-up EKG showed sinus rhythm, ventricular rate of 67 bpm, no ST segment patient depression noted. As interpreted by me. Results discussed with the patient. Patient stable for discharge home. There is no need to do further imaging patient is not showing any cauda equina syndrome. Medication Administration(s) Medication Administration History Discontinued Medications Ketorolac Tromethamine (Ketorolac Inj 60 Mg/2 Ml Vial) 30 mg IM X1 ONE Stop: 02/07/25 17:23 Last Admin: 02/07/25 17:38 Dose: 30 mg Documented By: TEOFILO
[2025-02-07 17:35] LABS: Basophils # (Auto) 0.1 Thou/mm3 (0.0-0.2); Basophils % (Auto) 1 % (0-2.5); Eosinophils # (Auto) 0.2 Thou/mm3 (0.0-0.5); Eosinophils % (Auto) 2 % (0-10); Hematocrit 40.1 % (36.0-46.0); Hemoglobin 13.4 g/dL (12.0-16.0); Immature Granulocytes Auto 0.02 Thou/mm3 (0.00-0.00); Lymphocytes # (Auto) 2.5 Thou/mm3 (1.0-4.8); Lymphocytes % (Auto) 30 % (10-50); Mean Corpuscular HGB Conc 33.4 g/dl (31.0-37.0); Mean Corpuscular Hemoglobin 30.0 pg (25.0-35.0); Mean Corpuscular Volume 90 fL (80-100); Monocytes # (Auto) 0.6 Thou/mm3 (0.0-0.8); Monocytes % (Auto) 8 % (0-12); Neutrophils # (Auto) 4.9 Thou/mm3 (1.8-7.7); Neutrophils % (Auto) 59 % (37-80); Nucleated Red Blood Cell # 0.00 Thou/mm3 (0.00-0.00); Nucleated Red Blood Cell % 0 /100 WBC (0); Platelet Count 237 Thou/mm3 (140-440); RDW Standard Deviation 38.3 fL (36.4-46.3); Red Blood Count 4.47 Miln/mm3 (4.00-5.20); White Blood Count 8.2 Thou/mm3 (3.6-11.0)
[2025-02-07] MEDS: KETOROLAC INJ 60 MG/2 ML VIAL 30 MG IM (17:38)
[2025-02-07 17:50] LABS: Collection Type, Urine Clean Catch
[2025-02-07 18:01] LABS: Bilirubin,Urine Negative (Negative); Blood,Urine Negative (Negative); Clarity,Urine Clear (Clear/Hazy); Color,Urine Yellow (Lt Yel-Yel); Culture Indicated,Urine Not Indicated; Glucose, Urine Negative (Negative); Ketones,Urine Negative (Negative); Leukocyte Esterase,Urine Negative (Negative); Nitrite,Urine Negative (Negative); PH,Urine 7.0 (5.0-7.0); Protein,Urine Trace (Neg - Trace); RBC,Urine 8 /hpf (0-3); Specific Gravity,Urine 1.028 (1.001-1.035); Squamous Epithelial Cell,Urine 6 /hpf (0-5); Urobilinogen,Urine Negative mg/dL (0.0-1.0); WBC,Urine 3 /hpf (0-5)
[2025-02-07 18:08] LABS: Alanine Aminotransferase 14 U/L (10-49); Albumin, Serum 4.2 gm/dL (3.4-4.8); Albumin/Globulin Ratio 1.7 (1.2-2.2); Alkaline Phosphatase 109 U/L (46-116); Anion Gap 10 (7-16); Aspartate Amino Transferase 18 U/L (0-34); BUN/Creatinine Ratio 13 Ratio (12-20); Bilirubin,Total 0.7 mg/dL (0.3-1.2); Blood Urea Nitrogen 10 mg/dL (9-23); Calcium 9.3 mg/dL (8.3-10.6); Calcium (Corrected) 9.3 mg/dL (8.5-10.1); Carbon Dioxide 29.1 mMol/L (20.0-31.0); Chloride 104 mMol/L (98-107); Creatinine (Component) 0.8 mg/dL (0.6-1.3); Estimated Creatinine Clearance 88.8 mL/min (>60); Globulin 2.5 gm/dL (2.3-3.5); Glucose 110 mg/dL (74-106); Osmolality,Calculated 284 (275-295); Potassium 4.1 mMol/L (3.4-5.1); Sodium 143 mMol/L (136-145); Total Protein 6.7 gm/dL (5.7-8.2); Troponin I < 0.020 ng/mL (0.0-0.045); eGFR > 60 See Note
[2025-02-07 18:19] VITALS: BP 152/84; PULSE 56; RESP 13; TEMP 36.9; O2SAT 97
[2025-02-07 19:38] VITALS: BP 164/89; PULSE 60; RESP 17; TEMP 37; O2SAT 96
== END 2025-02-07 19:48 | disposition home or self-care (01) ==
PROVIDERS: Nurse Practitioner Family; Emergency Provider Emergency Medicine; PCP Family Medicine
DX: M51.370 Other intervertebral disc degeneration, lumbosacral region with discogenic back pain only (principal); M48.061 Spinal stenosis, lumbar region without neurogenic claudication; M51.360 Other intervertebral disc degeneration, lumbar region with discogenic back pain only; M47.816 Spondylosis without myelopathy or radiculopathy, lumbar region; R94.31 Abnormal electrocardiogram [ECG] [EKG]
CPT/HCPCS: 36415; 72131; 80053; 81001; 84484; 85025; 93005; 96372; 99283; J1885